=== PATIENT | male | born 1985 | race Caucasian/White ===

== ENCOUNTER 2018-07-24 12:40 | Emergency (ER) | payer SELFPAY ==
[~2018-07-24] VITALS: Ht 180.3 cm; Wt 69.2 kg
[~2018-07-24 12:40] MED LIST: ALPR1TAB2 PO; DOXY100T PO; METH40TA3 PO
[2018-07-24 13:08] VITALS: BP 121/79
--- NOTE | 2018-07-24 13:23 | NUR ---
Pt presents to ED with c/o "lip infection that has been going on for a couple of days and it's not getting better. I have used hot water and hydrogen peroxide to try and clear it up. 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 Pt able to speak in full sentences and maintain airway and own secreations. Call light within reach.
--- NOTE | 2018-07-24 13:50 | NUR ---
Patient given discharge instructions and they have confirmed that they understand the instructions. Patient ambulatory with steady gait. Pt left with all personal belongings, discharge paperwork, and prescription.
== END 2018-07-24 13:52 | disposition home or self-care (01) ==
LOC: ED 13:39
DX: L01.00 Impetigo, unspecified (principal); F17.200 Nicotine dependence, unspecified, uncomplicated
CPT/HCPCS: 99283